=== PATIENT | female | born 1985 | race Caucasian/White ===

== ENCOUNTER → 2025-08-23 13:08 | Outpatient (BNVA) | payer MEDICAID, SELFPAY | PROVIDERS: Visit Provider Obstetrics & Gynecology | DX: N91.2 Amenorrhea, unspecified (principal); N92.6 Irregular menstruation, unspecified | CPT/HCPCS: 80053; 81025; 84702; 86850; 86900 ==

== ENCOUNTER 2025-09-06 19:50 | Observation (INO) | payer MEDICAID, SELFPAY ==
[2025-09-06] VITALS (9 sets, daily range): BP systolic 59–104; BP diastolic 44–70; PULSE 81–129; RESP 16; TEMP 36.8; O2SAT 96–100; BMI 23.1
--- NOTE | 2025-09-06 20:10 | ED_ITS ---
HPI - 2 General: Chief complaint: Vaginal Bleeding Stated complaint: Had a Miscarriage and is bleeding Time Seen by Provider: 09/06/25 20:01 History of Present Illness: 40-year-old female patient is G9, P2 SAB 2 L6 presenting with complaints of vaginal bleeding. She was seen earlier this month at 7 weeks gestation pole with no heart activity open you know thoroughly reviewed. They are at this putting a repeat ultrasound to look further evaluate viability. Last night she started bleeding quite heavily. She had been on progesterone through this her last dose was yesterday. She has been lightheaded dizzy and weak today. History 9 Term 6 0 Miscarriages/Ectop ic 2 Living Children 6 Date of Last Menstrual Period: 06/20/25 Associated symptoms: Deny abdominal pain or dysuria Related Data Home Medications ?Medication ?Instructions ?Recorded ?Confirmed Estrogen Oil topical BID 08/23/25 5 Allergies Allergy/AdvReac Type Severity Reaction Status Date / Time No Known Allergies Allergy Unverified 08/31/25 10:06 Review of Systems 2 Const: Denies: fever(s) or chills Card: Denies: chest pain Resp: Denies: dyspnea GI: Denies: abdominal pain : Reports: vaginal bleeding and pelvic pain; Denies: dysuria, urinary frequency or urinary urgency Musc: Denies: neck pain or back pain Skin/Breast: Denies: rash PFSH ED 2 PFSH: Medical History Abnormal in first trimester Hx of pre-eclampsia in prior , currently AMA (advanced maternal age) multigravida 35+ Family History Father Heart disease Hypertension Diabetes Mother Hypertension Hyperlipidemia Grandmother Uterine cancer Social History Smoking and tobacco/nicotine status: never used tobacco/nicotine Alcohol intake: never Substance/Drug Use: never Female Reproductive History: Date of last menstrual period: 06/20/25 Physical Exam 2 Const: COMMON NORMALS: no acute distress GENERAL APPEARANCE: cooperative and comfortable ORIENTATION/CONSCIOUSNESS: Yes awake, Yes oriented to person, Yes oriented to place and Yes oriented to time HENMT: COMMON NORMALS: normocephalic, atraumatic and hearing grossly normal bilaterally HEAD & SCALP: normocephalic and atraumatic Resp: COMMON NORMALS: normal respiratory effort, No retractions, No use of accessory muscles and clear to auscultation bilaterally AUSCULTATION: clear to auscultation bilaterally Cardio: COMMON NORMALS: regular rate, regular rhythm and No murmurs present (Cardio) RATE: regular rate RHYTHM: regular rhythm GI: COMMON NORMALS: Soft to palpation and No hepatosplenomegaly present A USCULTATION: Yes normoactive bowel sounds PALPATION: Yes Soft to palpation, No Tenderness to palpation present (GI), No Guarding due to palpation present (GI) and Yes No hepatosplenomegaly present : OTHER: Pelvic exam done with nurse in attendance. Patient placed in dorsolithotomy position speculum introduced large amount of clot in the vaginal vault this is evacuated using ring forceps. Proximal conception visualized at the cervical os this was removed with a ring forceps observe the cervix for a time after this no significant bleeding. Extremity: COMMON NORMALS: normal to inspection, capillary refill normal, no clubbing, cyanosis or edema, no calf tenderness and no pedal edema Neuro: SENSORIUM/ORIENTATION: Yes oriented to person, Yes oriented to place and Yes oriented to time Skin: COMMON NORMALS: no rashes or lesions noted GENERAL SKIN EXAM: no rashes or lesions noted Course 2 Vital Signs: Vital signs: Vital Signs Temperature 98.2 F 09/06/25 19:59 Pulse Rate 81 09/06/25 23:18 Respiratory Rate 16 09/06/25 19:59 Blood Pressure 102/64 09/06/25 23:18 Pulse Oximetry 100 09/06/25 23:18 Oxygen Delivery Me thod Room Air 09/06/25 23:18 MDM - OB/Uterine Contractions Medical Decision Making Medical decision making Social determinants: Patient has family support at the bedside I reviewed the patient's medical record. I reviewed the patient's current home meds Alternate historians: contributed some to history Differential diagnosis: Incomplete AB versus endomyometritis Lab Review: Labs reviewed. Hemoglobin did drop significantly on second lab draw from 9.8-7.9 Imaging: None Assessment of risk: Level of risk: Moderate Hospitalization considerations: Patient placed on observation due to drop in hemoglobin and orthostasis. Reexamination: Repeat exam patient remains weak. She is hypotensive when sitting up blood pressure dropped to 59 systolic when lying down her symptoms are resolved. She has had only minimal bleeding since pelvic exam was done with removal of products of conception from the os Assessment and plan: Had hoped to discharge patient home after fluids however she is significantly orthostatic as pretty significant drop in her hemoglobin discussed Dr. Roberts will place her on observation orders written and reviewed findings with the patient as well. Patient given 1 g TXA in the department. Medical Records I reviewed the patient's medical records. Lab Data I reviewed the patient's lab results. 09/06/25 22:38 09/06/25 20:06 Laboratory Results WBC 11.75 10^3/uL (3.29-11.43) H 09/06/25 20:06 RBC 3.38 10^6/uL (3.85-5.65) L 09/06/25 20:06 Hgb 7.90 g/dL (11.27-16.99) L 09/06/25 22: Hct 22.8 % (36-47) L 09/06/25 22: MCV 81.7 fl (85-98) L 09/06/25 20:06 MCH 29.0 pg (27-33) 09/06/25 20:06 MCHC 35.5 g/dL (30-55) 09/06/25 20:06 RDW 12.6 % (12.1-15.1) 09/06/25 20:06 Plt Count 274 10^3/cmm (157-399) 09/06/25 20:06 MPV 10.1 fL (7.4-10.4) 09/06/25 20:06 Neut % (Auto) 75.0 % 09/06/25 20:06 Lymph % (Auto) 16.6 % 09/06/25 20:06 Pepin % (Auto) 7.8 % 09/06/25 20:06 Eos % (Auto) 0.1 % 09/06/25 20:06 Baso % (Auto) 0.2 % 09/06/25 20:06 Neut # (Auto) 8.82 10^3/uL (1.8-7.7) H 09/06/25 20:06 Lymph # (Auto) 2.0 10^3/uL (0.8-4.8) 09/06/25 20:06 Pepin # (Auto) 0.9 10^3/uL (0.2-0.9) 09/06/25 20:06 Eos # (Auto) 0.0 10^3/uL (0.0-0.8) 09/06/25 20:06 Baso # (Auto) 0.0 10^3/uL (0.0-0.1) 09/06/25 20:06 Nucleated RBC % (auto) 0 % 09/06/25 20:06 Nucleated RBCs # 0.0 /100WBC 09/06/25 20:06 Sodium 131 mmol/L (136-145) L 09/06/25 20:06 Potassium 4.0 mmol/L (3.5-5.1) 09/06/25 20:06 Chloride 100 mmol/L (98-107) 09/06/25 20:06 Carbon Dioxide 20 mmol/L (22-29) L 09/06/25 20:06 Anion Gap 15.0 (5-19) 09/06/25 20:06 BUN 15 mg/dL (6-20) 09/06/25 20:06 Creatinine 0.8 mg/dL (0.5-0.9) 09/06/25 20:06 GFR Calculation 78.7 mL/min (90-130) L 09/06/25 20:06 Glucose 144 mg/dL (65-115) H 09/06/25 20:06 Calculated Osmolality 275 mOsm/kg (285-295) L 09/06/25 20:06 Calcium 8.7 mg/dL (8.5-10.5) 09/06/25 20:06 Total Bilirubin 2.2 mg/dL (0.15-1.2) H 09/06/25 20:06 AST 10 U/L (0-32) 09/06/25 20:06 ALT 10 U/L (0-33) 09/06/25 20:06 Alkaline Phosphatase 31 U/L (35-105) L 09/06/25 20:06 Total Protein 6.4 g/dL (6.6-8.7) L 09/06/25 20:06 Albumin 3.9 g/dL (3.5-5.2) 09/06/25 20:06 Globulin 2.5 g/dL (1.3-4.6) 09/06/25 20:06 Ser , Semi-Qnt 755.80 mIU/mL 09/06/25 20:06 No radiology studies performed this visit Discharge Plan Discharge Patient Disposition: Placed in Observation Clinical Impression: Incomplete , AMA (advanced maternal age) multigravida 35+, Hx of pre- eclampsia in prior , currently , Anemia Coding Level of Care Code ED Remote Sensing Engineer for Kinga Diaz
[2025-09-06 20:34] LABS: Hematocrit 27.6 % (36-47); Hemoglobin 9.80 g/dL (11.27-16.99); Mean Corpuscular HGB Conc 35.5 g/dL (30-55); Mean Corpuscular Hemoglobin 29.0 pg (27-33); Mean Corpuscular Volume 81.7 fl (85-98); Nucleated Red Blood Cells % 0 %; Platelet Count 274 10^3/cmm (157-399); Red Blood Count 3.38 10^6/uL (3.85-5.65); White Blood Count 11.75 10^3/uL (3.29-11.43)
[2025-09-06 20:45] LABS: Alanine Aminotransferase 10 U/L (0-33); Albumin Level 3.9 g/dL (3.5-5.2); Alkaline Phosphatase 31 U/L (35-105); Anion Gap 15.0 (5-19); Aspartate Amino Transferase 10 U/L (0-32); Blood Urea Nitrogen 15 mg/dL (6-20); Calcium 8.7 mg/dL (8.5-10.5); Carbon Dioxide 20 mmol/L (22-29); Chloride 100 mmol/L (98-107); Globulin 2.5 g/dL (1.3-4.6); Glucose 144 mg/dL (65-115); Osmolality Calculated 275 mOsm/kg (285-295); Potassium 4.0 mmol/L (3.5-5.1); Sodium 131 mmol/L (136-145); Total Protein 6.4 g/dL (6.6-8.7)
[2025-09-06 22:55] LABS: Hematocrit 22.8 % (36-47); Hemoglobin 7.90 g/dL (11.27-16.99)
[2025-09-06] MEDS: tranexamic acid 1,000 MG/100 ML PREMIX 600 MG IV (23:17)
[2025-09-07] VITALS (39 sets, daily range): BP systolic 72–124; BP diastolic 49–76; PULSE 65–109; RESP 14–18; TEMP 36.4–36.9; O2SAT 94–100; BMI 23.1
--- NOTE | 2025-09-07 02:50 | PC.NURSE ---
Physician update: Dr. Roberts called to check on patient; inquired about her bleeding and notified Dr. Roberts that patient's vaginal bleeding has been small-moderate since her arrival on OB unit about 2 hours ago, no clots. Confirmed with Dr. Roberts that patient has CBC and BMP ordered for 0400; Dr. Roberts states that she does not want to be called/texted with results, she will call at 0600 for results. This RN also confirmed with Dr. Roberts that clear liquid diet is acceptable for patient.
[2025-09-07 04:44] LABS: Hemoglobin 6.60 g/dL (11.27-16.99); Mean Corpuscular HGB Conc 33.7 g/dL (30-55); Mean Corpuscular Hemoglobin 28.3 pg (27-33); Mean Corpuscular Volume 84.1 fl (85-98); Nucleated Red Blood Cells % 0 %; Platelet Count 188 10^3/cmm (157-399); Red Blood Count 2.33 10^6/uL (3.85-5.65); White Blood Count 9.43 10^3/uL (3.29-11.43)
[2025-09-07 04:52] LABS: Hematocrit 19.6 % (36-47)
[2025-09-07 05:01] LABS: Anion Gap 11.2 (5-19); Blood Urea Nitrogen 10 mg/dL (6-20); Calcium 7.5 mg/dL (8.5-10.5); Carbon Dioxide 22 mmol/L (22-29); Chloride 106 mmol/L (98-107); Glucose 122 mg/dL (65-115); Osmolality Calculated 280 mOsm/kg (285-295); Potassium 4.2 mmol/L (3.5-5.1); Sodium 135 mmol/L (136-145)
--- NOTE | 2025-09-07 08:13 | USR_ITS ---
PROCEDURE INFORMATION: Exam: US , Transvaginal Exam date and time: 09/07/2025 8:50 AM Age: 40 years old Clinical indication: Lmp or gestational age (in weeks): 06/20/2025; Other: Miscarriage; Additional info: Possibly retained products of conception LABS AND CLINICAL REPORTS: Choriogonadotropin in serum (Serum HCG): 756 mIU/mL Last menstrual period start date: 06/20/2025 TECHNIQUE: Imaging protocol: Real-time transvaginal obstetrical ultrasound of the maternal pelvis with image documentation. Transvaginal imaging was used for better evaluation of the fetus, adnexa, and/or cervix. COMPARISON: US OB <= 14 weeks fetus [facility] 08/30/2025 9:26 AM FINDINGS: Gestation: No intrauterine gestation identified. MATERNAL: Uterus: No viable identified. No convincing ultrasound evidence of retained products of conception. Tiny amount of fluid in the endometrial and endocervical canal is likely blood. Endometrium measures 1.8 cm in thickness, but is not hypervascular.. Otherwise, unremarkable uterus and cervix. Right ovary/adnexa: Normal-appearing right ovary with normal blood flow. No solid right adnexal masses. Left ovary/adnexa: Normal-appearing left ovary with normal blood flow. No solid left adnexal masses. Intraperitoneal space: No free fluid. US/US OB transvaginal [id number] IMPRESSION: 1. No viable identified. 2. No convincing ultrasound evidence of retained products of conception. 3. Tiny amount of fluid in the endometrial and endocervical canal is likely blood. 4. No other significant abnormalities.
--- NOTE | 2025-09-07 08:41 | P.HP_ITS ---
Providers/Chief Complaint 2 Admitting Physician: Rosalva Roberts MD Primary Care Provider: Rosalva Roberts MD Chief Complaint: Possible Miscarriage and is bleeding HPI CERTIFIED FLIGHT INSTRUCTOR History of Present Illness Rosalva Ward is a 40 year old female multigravid who came through ER for hemorrhage associated with active SAB. Seen in office and declined any intervention and insisted on continuing topical progesterone. She started SAB at home and had tremendous bleeding with clots that progressed. POC wre removed in ER sitting at cervical os along with many clots. She had tachycardia and hypotension so admitted for stabilization and continued observation. This am feels better than last night. Present Details : 9 Para: 6 Date of Last Menstrual Period: 06/20/25 Calculated Date of Delivery: 03/27/26 Gestational Age Based on Last Menstrual Period: 11 Review of Systems 2 Narrative: Pertinent positives listed in HPI: Const: Denies: fever(s) or chills Card: Denies: chest pain, palpitations + syncope Resp: Denies: SOB, cough GI: Denies: abdominal pain, nausea or vomiting : Denies: flank pain, dysuria or urinary frequency Musc: Denies: back pain or extremity swelling Skin/Breast: Denies: rash, pruritus or breast pain Neuro: Denies: headache(s) or dizziness Psych: Denies: depression or mood swings Endo: Denies: polyuria, cold or heat intolerance Samy/Lymph: Denies: easy bruising or easy bleeding Medications/Allergies Home Medications ?Medication ?Instructions ?Recorded ?Confirmed ?Last Taken ?Type multivitamin 1 tab PO DAILY 09/07/2508/1409/06/25 History Allergies Allergy/AdvReac Type Severity Reaction Status Date / Time No Known Allergies Allergy Verified 09/07/25 01:43 PFSH CERTIFIED FLIGHT INSTRUCTOR 2 PFSH: Medical History (Updated 09/07/25 @ 08:50 by Rosalva Roberts MD) Hemorrhage affecting SAB (spontaneous ) Abnormal in first trimester Hx of pre-eclampsia in prior , currently AMA (advanced maternal age) multigravida 35+ Family History Father Heart disease Hypertension Diabetes Mother Hypertension Hyperlipidemia Grandmother Uterine cancer Social History Smoking and tobacco/nicotine status: never used tobacco/nicotine Alcohol intake: never Substance/Drug Use: never History History History 2 9 Term 6 0 Miscarriages/Ectopic 2 Living Children 6 Vitals/I&O/Wt Last Vital Signs Temp 98.5 F 09/07/25 07:53 Pulse 80 09/07/25 07:53 Resp 16 09/07/25 07:53 BP 74/49 09/07/25 04:25 Pulse Ox 99 09/07/25 07:53 O2 Del Method Room Air 09/07/25 04:25 09/06/25 09/07/25 09/07/25 22:59 06:59 14:59 Intake Total 1000 / 1000 0 / 0 Balance 1000 / 1000 0 / 0 Weight last 48 hrs Weight 135 lb Weight 135 lb Physical Exam 2 Narrative: Appearance: grossly normal Attitude: calm and engaged, appropriate eye contact Const: no acute distress, oriented x3 cooperative Chest: Symmetrical chest wall rise Resp: normal respiratory effort, clear to auscultation bilaterally Cardio: regular rate and regular rhythm GI: Soft to palpation, Non Tender, no Guarding, no masses : No Uterine tenderness, small dried blood on thighs Extremity: normal inspection, negative for no pedal edema Neuro: oriented x3 and moves all extremities, speech normal Psych: mental status grossly normal, and Normal thought process present Skin: no rashes or lesions noted Data 09/07/25 04:30 09/07/25 04:30 Results Labs OB ([facility]): 2 Obstetrics US 08/30/25 Blood Type A Positive 09/06/25 Antibody Screen Negative 09/06/25 Hct, (36-47) 19.6 % L* Today Hgb, (11.27-16.99) 6.60 g/dL L Today Rho(D) Type Rh positive 09/06/25 Plt Count, (157-399) 188 10^3/cmm Δ Today Ser , Semi-Qnt 755.80 mIU/mL 09/06/25 HCG, Qual, (Negative) Positive H 08/23/25 A&P Assessment and plan 1. SAB (spontaneous ): She is doing better and getting transfused this am, will check US for any retained POC. She told me I was right and she should have listened but at least she came in when she did. 2. Hemorrhage affecting : Transfusing, hgb 6.6. Goal improved VS and stay above 7. 3. Anemia: 4. Incomplete : 5. AMA (advanced maternal age) multigravida 35+: 6. : PDMP PDMP Reviewed: Not Reviewed Attestations 2 Medical Necessity Statement*: OB Coding Level of Care Code Acute Code for Chg Fwd Diagnoses SAB (spontaneous ) O03.9 Hemorrhage affecting O46.90 Anemia D64.9 Incomplete O03.4 AMA (advanced maternal age) multigravida 35+ O09.529 Z34.90
--- NOTE | 2025-09-07 12:03 | PC.NURSE ---
PT UP TO BATHROOM AND VOIDED AND THEN C/O GETTING DIZZY, WE GOT BACK TO BED QUICKLY, SHE STATED THAT HER EARS WERE RINGING. PATIENT RESTING IN BED, VITALS DONE PRIOR TO GETTING UP WELL AFTER LAYING DOWN. PT STATED THAT SHE WAS FEEELING BETTER SINCE SHE LAID DOWN AND THIS TEACHER BALLET AGAIN TOLD HER NOT TO GET UP WITHOUT ASSISTANCE. PT VOICES UNDERSTANDING. 1120 DR. CHEN WAS HERE SO TOLD HER ABOUT PATIENT BEING DIZZY WHEN SHE GOT UP THIS TIME AND TOLD HER HER VITALS AND ORDERS RECEIVED FOR TO ADVANCE DIET TO REGULAR WELL CBC AT 1400.
--- NOTE | 2025-09-07 12:41 | PC.NURSE ---
VITALS DONE PRIOR TO HER GETTING U AND THEN ONCE SHE LAID BACK DOWN.
--- NOTE | 2025-09-07 12:43 | PC.NURSE ---
BLOOD WAS INFUSED BY 0840 BUT THIS CUT OFF OPERATOR SCORER FORGOT TO CHART INFUSED.
--- NOTE | 2025-09-07 14:21 | PC.NURSE ---
PT UP TO BATHROOM, DID GOOD, DENIED DIZZINESS BUT STILL FEELS WEAK. STILL VERY PALE.
--- NOTE | 2025-09-07 14:22 | PC.NURSE ---
PT UP TO BATHROOM, SMALL AREA OF BLOOD ON CHUX, RACHNA PAD WAS ABOUT 3/4 COVERED.
[2025-09-07 14:25] LABS: Hemoglobin 6.90 g/dL (11.27-16.99); Mean Corpuscular HGB Conc 35.4 g/dL (30-55); Mean Corpuscular Hemoglobin 29.7 pg (27-33); Mean Corpuscular Volume 84.1 fl (85-98); Nucleated Red Blood Cells % 0 %; Platelet Count 155 10^3/cmm (157-399); Red Blood Count 2.32 10^6/uL (3.85-5.65); White Blood Count 8.56 10^3/uL (3.29-11.43)
[2025-09-07 14:36] LABS: Hematocrit 19.5 % (36-47)
--- NOTE | 2025-09-07 17:06 | PM.MISC ---
Miscellaneous Note Note: Discussed the second unit going now and she continues to keep bleeding though not heavy she doesn't have room to drop hgb anymore. Despite US findings could just have fragment tissue hanging around. She agreed and wanted conservative treatment up to this point. Asked options and I explained continued loss equals continued replacement. Consented for suction D&C. Patient counseled on options: expectant management with risk of prolonged infection and injury/complication to uterus, pharmicotherapy with risk of failed medical , cytotec fever and need for repeat dosing and suction D&C. Risk of D&C were reviewed including, but not limited to, pain, infection, bleeding, blood loss requiring transfusion, uterine perforation and need for additional or subsequent surgery for repair. She voices understanding and denies any questions or needs. Will proceed with [surgery at [address] valencia] .
--- NOTE | 2025-09-07 17:51 | PC.NURSE ---
163 DR. CHEN HERE AND INTO SEE PATIENT, DR CHEN ASKING ABOUT PATIENT BLEEDING AND I SHOWED HER ALL OF THE RACHNA PADS THAT I HAVE CHANGED TODAY AND SHE IS NOT COMFORTABLE WITH THE AMOUNT THAT ARE ON THEM. DR. CHEN TALKED AT LENGTH WITH PATIENT ABOUT HER BLEEDING AND ENCOURAGED AND TALKED WITH HER ABOUT A D&C AND ALSO ABOUT THAT EVEN AFTER BLOOD HER LEVELS WERE STILL LOW. PATIENT ASKED QUESTIONS AND THEY WERE ANSWERED AND PATIENT AGREED TO HAVE SURGERY AND DR. CHEN DISCUSSED RISKS WITH HER, CONSENT SIGNED AND SINCE PATIENT ATE AT [facility] 1300 SHE WANTS TO WAIT 6 HOURS FOR SAFETY. THIS DIRECTOR GLOBAL MARKET RESEARCH CALLED MARY BUTLER CRNA AND HE IS AWARE OF SITUATION AND ALSO CALLED [facility] AND SHE IS NOTIFYING OR STAFF BECAUSE SHE WANTS TO DO IT DOWN THERE WHERE THEY HAVE EVERYTHING THEY NEED. THIS DIRECTOR GLOBAL MARKET RESEARCH DID TELL DR. CHEN AFTER LEAVING ROOM THAT PATIENT DOES HAVE A STRONG ODOR FROM VAGINA POSSIBLE JUST OLD BLOOD BUT NOT SURE IF ITS BLOOD SMELL OR INFECTION SMELL. DR. CHEN ORDERED 2 MORE UNITS OF BLOOD TO BE AVAILABLE FOR OR IF NEEDED. SHE STATED THAT SHE WOULD PROBABLY GIVE HER A UNIT IN OR.
--- NOTE | 2025-09-07 18:30 | PC.NURSE ---
PT TO OR WITH OR CREW.
--- NOTE | 2025-09-07 18:46 | ANES.PREANE2 ---
Pre-Anesthetic Assessment Height/Weight: Height 1.63 m Weight 61.235 kg Temp Pulse Resp BP Pulse Ox O2 Del Method 97.5 F L 90 18 99/59 99 Room Air 09/07/25 18:20 09/07/25 18:20 09/07/25 18:20 09/07/25 18:20 09/07/25 18:20 09/07/25 18:20 Operation Date: 09/07/25 19:00 Proposed Procedures p Dilation And Curettage (D&C) Dilatation and Curettage with Suction(Not Applicable) - Rosalva Roberts MD Familial anesthetic complications: Never had anesthesia, no known family complications to anesthesia Was Beta Sultana taken within 24 hours: N/A Was Clonidine taken within 24 hours: N/A Last intake: 1230 Social No alcohol and No tobacco Exam alert, oriented x 3, clear to auscultation bilaterally and regular rate & rhythm Airway Submandibular: within normal limits Cervical ROM: within normal limits Mallampati: Class II Dentition: full History/ROS No significant history except as noted and No significant complaints Pulmonary None reported CV/HEM Anemia Pre-eclampsia in November, resolved since None reported Hepatic Elevated bilirubin per patient GI None reported Metabolic None reported Musc/skel None reported Neuropsych None reported Anesthetic Plan ASA status: 2E Anesthesia: Anesthesia Evaluation and General Risk of > 500 ml blood loss (7ml/kg in children): Yes, adequate IV access and fluids planned Medications/Allergies Home Medications ?Medication ?Instructions ?Recorded ?Confirmed ?Last Taken ?Type multivitamin 1 tab PO DAILY 09/07/25 09/07/25 09/06/25 History Allergies Allergy/AdvReac Type Severity Reaction Status Date / Time No Known Allergies Allergy Verified 09/07/25 01:43 Current Medications Generic Name Dose Route Start Last Admin Trade Name Freq PRN Reason Stop Dose Admin Sodium Chloride 1,000 mls @ 100 mls/hr 09/07/25 00:26 09/07/25 01:32 Sodium Chloride 0.9% IV 100 mls/hr On Hold: 09/07/25 18:18 .Q10H MERY Administration Comment: Order held by Process Transfer [facility] Anesthesia Medical History (Updated 09/07/25 @ 08:50 by Rosalva Roberts MD) Hemorrhage affecting SAB (spontaneous ) Abnormal in first trimester Hx of pre-eclampsia in prior , currently AMA (advanced maternal age) multigravida 35+ Family History Father Heart disease Hypertension Diabetes Mother Hypertension Hyperlipidemia Grandmother Uterine cancer Social History Smoking and tobacco/nicotine status: never used tobacco/nicotine Alcohol intake: never Substance/Drug Use: never Female Reproductive History Date of last menstrual period: 06/20/25 : 9 Data Anesthesia 09/07/25 14:00 09/07/25 04:30 Short CBC 09/06/25 09/06/25 09/07/25 Range/Units 20:06 22:38 04:30 WBC 11.75 H 9.43 (3.29-11.43) 10^3/uL Hgb 9.80 L 7.90 L 6.60 L (11.27-16.99) g/dL Hct 27.6 L 22.8 L 19.6 L* (36-47) % MCV 81.7 L 84.1 L (85-98) fl Plt Count 274 188 D (157-399) 10^3/cmm Neut % (Auto) 75.0 67.0 % Neut # (Auto) 8.82 H 6.31 (1.8-7.7) 10^3/uL 09/07/25 Range/Units 14:00 WBC 8.56 (3.29-11.43) 10^3/uL Hgb 6.90 L (11.27-16.99) g/dL Hct 19.5 L* (36-47) % MCV 84.1 L (85-98) fl Plt Count 155 L (157-399) 10^3/cmm Neut % (Auto) 70.9 % Neut # (Auto) 6.08 (1.8-7.7) 10^3/uL BMP 09/06/25 09/07/25 20:06 04:30 Sodium 131 L 135 L Potassium 4.0 4.2 Chloride 100 106 Carbon Dioxide 20 L 22 BUN 15 10 Creatinine 0.8 0.5 Glucose 144 H 122 H Calcium 8.7 7.5 L Liver Function 09/06/25 Range/Units 20:06 Total Bilirubin 2.2 H (0.15-1.2) mg/dL AST 10 (0-32) U/L ALT 10 (0-33) U/L Alkaline Phosphatase 31 L (35-105) U/L Albumin 3.9 (3.5-5.2) g/dL Blood Bank 09/06/25 22:38 Blood Type A Positive Rho(D) Type Rh positive Antibody Screen Negative
--- NOTE | 2025-09-07 18:54 | PM.OP ---
Operative Report Date of procedure: September 07, 2025 Pre-op diagnosis: incomplete with hemorrhage Post-op diagnosis: same Procedure done: suction D&C Specimens removed/disposition: POC Pathology: POC Surgeon: Rosalva Roberts MD Estimated blood loss: 175 cc IV fluids: 1000 cc Urine output: 100 cc Findings: moderate POC, dilated cervix to 2 cm Procedure: Patient taken to OR, consent verified and time out done. Patient prepped and draped in dorsal lithotomy position after adequate anesthesia obtained.. Cervix grasped after retractors placed. Cervix was dilated and small POC at os opening. A size 9 mm curette used until gritty texture noted. Sharp curette passed to verify the same. POC removed. several passes until satisfied. Uterus boggy, IM methergine, TXA and pitocin given with massage and vast improvement and decreased in size until Bleeding scant. One unit of blood given also. All instruments removed and counts wree correct. Patient extubated and taken to recovery.
[2025-09-07] MEDS: tranexamic acid 1,000 mg/10mL SDV 1000 MG IV (19:21)
[2025-09-08] VITALS (8 sets, daily range): BP systolic 96–117; BP diastolic 56–79; PULSE 64–88; RESP 16; TEMP 36.6–36.7; O2SAT 99–100
[2025-09-08 04:59] LABS: Hematocrit 26.2 % (36-47); Hemoglobin 9.40 g/dL (11.27-16.99); Mean Corpuscular HGB Conc 35.9 g/dL (30-55); Mean Corpuscular Hemoglobin 29.8 pg (27-33); Mean Corpuscular Volume 83.2 fl (85-98); Platelet Count 143 10^3/cmm (157-399); Red Blood Count 3.15 10^6/uL (3.85-5.65); White Blood Count 7.57 10^3/uL (3.29-11.43)
--- NOTE | 2025-09-08 11:54 | P.DS_ITS ---
Discharge Providers INSERTING PRESS OPERATOR Date of Admission: 09/06/25 23:01 Date of Discharge: 09/08/25 Attending Provider at Admission: Rosalva Roberts MD Attending Provider at Discharge: Rosalva Roberts MD Primary Care Provider: Rosalva Roberts MD Diagnoses at Discharge Discharge Diagnosis 1. SAB (spontaneous ): 2. Hemorrhage affecting : 3. Anemia: 4. Incomplete : 5. AMA (advanced maternal age) multigravida 35+: 6. : Reason for Visit Reason for Visit: Possible Miscarriage and is bleeding Hospital Course Hospital Course Admitted from ER after retrieval of POC at os. VS with hypotension and tachycardia so here for observation. The bleeding was still present and lingering of light to more period. She then passed mild tissue on her own. US done and showed no more POC, only blood. Still symptomatic and given 2 units PRBCs. Because bleeding remained heavier than clinically appropriate she was taken for D&C. Moderate amount of POC removed, 1 unit PRBCs, methergine and pitocin given. Recovered overnight and bleeding scant, hgb stabilized from 6.6 to 9.4. Discharged home. improved. Physical Exam Narrative: Appearance: grossly normal Attitude: calm and engaged, appropriate eye contact Const: no acute distress, oriented x3 cooperative Chest: Symmetrical chest wall rise Resp: normal respiratory effort, clear to auscultation bilaterally Cardio: regular rate and regular rhythm GI: Soft to palpation, Non Tender, no Guarding, no masses Extremity: normal inspection, negative for no pedal edema Neuro: oriented x3 and moves all extremities, speech normal Psych: mental status grossly normal, and Normal thought process present Skin: no rashes or lesions noted History History History 9 Term 6 0 Miscarriages/Ectopic 2 Living Children 6 Discharge Data Studies Completed and Pending Completed Studies During Hospitalization Category Date Time Status US OB transvaginal [id number] Urgent Ultrasound 09/07/25 08:13 Completed Pending at discharge Category Date Time Status PRBC [Leukocyte Reduced RBC] Stat Lab 09/07/25 06:34 Results Type and Screen Stat Lab 09/06/25 22:38 Results Pathology: Surgical [PTH] Routine Pth 09/07/25 19:25 Ordered Pathology: Surgical [PTH] Stat Pth 09/06/25 22:15 Stop Req Pathology: Surgical [PTH] Stat Pth 09/07/25 09:00 Received Radiology Impressions Transvaginal US 09/07/25 08:13 IMPRESSION: 1. No viable identified. 2. No convincing ultrasound evidence of retained products of conception. 3. Tiny amount of fluid in the endometrial and endocervical canal is likely blood. 4. No other significant abnormalities. Laboratory Results WBC 7.57 10^3/uL (3.29-11.43) 09/08/25 04:30 RBC 3.15 10^6/uL (3.85-5.65) L 09/08/25 04:30 Hgb 9.40 g/dL (11.27-16.99) L D 09/08/25 04:30 Hct 26.2 % (36-47) L D 09/08/25 04:30 MCV 83.2 fl (85-98) L 09/08/25 04:30 MCH 29.8 pg (27-33) 09/08/25 04:30 MCHC 35.9 g/dL (30-55) 09/08/25 04:30 RDW 13.3 % (12.1-15.1) 09/08/25 04:30 Plt Count 143 10^3/cmm (157-399) L 09/08/25 04:30 MPV 10.0 fL (7.4-10.4) 09/08/25 04:30 Neut % (Auto) 70.9 % 09/07/25 14:00 Lymph % (Auto) 18.7 % 09/07/25 14:00 [place] % (Auto) 8.9 % 09/07/25 14:00 Eos % (Auto) 0.6 % 09/07/25 14:00 Baso % (Auto) 0.5 % 09/07/25 14:00 Neut # (Auto) 6.08 10^3/uL (1.8-7.7) 09/07/25 14:00 Lymph # (Auto) 1.6 10^3/uL (0.8-4.8) 09/07/25 14:00 [place] # (Auto) 0.8 10^3/uL (0.2-0.9) 09/07/25 14:00 Eos # (Auto) 0.1 10^3/uL (0.0-0.8) 09/07/25 14:00 Baso # (Auto) 0.0 10^3/uL (0.0-0.1) 09/07/25 14:00 Nucleated RBC % (auto) 0 % 09/07/25 14:00 Nucleated RBCs # 0.0 /100WBC 09/07/25 14:00 Sodium 135 mmol/L (136-145) L 09/07/25 04:30 Potassium 4.2 mmol/L (3.5-5.1) 09/07/25 04:30 Chloride 106 mmol/L (98-107) 09/07/25 04:30 Carbon Dioxide 22 mmol/L (22-29) 09/07/25 04:30 Anion Gap 11.2 (5-19) 09/07/25 04:30 BUN 10 mg/dL (6-20) 09/07/25 04:30 Creatinine 0.5 mg/dL (0.5-0.9) 09/07/25 04:30 GFR Calculation 135.3 mL/min (90-130) H 09/07/25 04:30 Glucose 122 mg/dL (65-115) H 09/07/25 04:30 Calculated Osmolality 280 mOsm/kg (285-295) L 09/07/25 04:30 Calcium 7.5 mg/dL (8.5-10.5) L 09/07/25 04:30 Total Bilirubin 2.2 mg/dL (0.15-1.2) H 09/06/25 20:06 AST 10 U/L (0-32) 09/06/25 20:06 ALT 10 U/L (0-33) 09/06/25 20:06 Alkaline Phosphatase 31 U/L (35-105) L 09/06/25 20:06 Total Protein 6.4 g/dL (6.6-8.7) L 09/06/25 20:06 Albumin 3.9 g/dL (3.5-5.2) 09/06/25 20:06 Globulin 2.5 g/dL (1.3-4.6) 09/06/25 20:06 Ser , Semi-Qnt 755.80 mIU/mL 09/06/25 20:06 Blood Type A Positive 09/06/25 22:38 Rho(D) Type Rh positive 09/06/25 22:38 Antibody Screen Negative 09/06/25 22:38 Crossmatch See Detail 09/06/25 22:38 Vitals Last Vital Signs Temp 98.0 F 09/08/25 10:12 Pulse 88 09/08/25 10:12 Resp 16 09/08/25 10:12 BP 117/79 09/08/25 10:12 Pulse Ox 99 09/08/25 10:12 O2 Del Method Room Air 09/08/25 10:12 Results Labs OB ([facility]): Obstetrics 08/30/25 Blood Type A Positive 09/06/25 Antibody Screen Negative 09/06/25 Hct, (36-47) 26.2 % L Δ Today Hgb, (11.27-16.99) 9.40 g/dL L Δ Today Rho(D) Type Rh positive 09/06/25 Plt Count, (157-399) 143 10^3/cmm L Today Ser , Semi-Qnt 755.80 mIU/mL 09/06/25 HCG, Qual, (Negative) Positive H 08/23/25 Discharge Plan Discharge Patient Disposition: Home Condition: Stable Prescriptions: New acetaminophen 325 mg Tablet 650 mg PO Q6H PRN (Reason: Mild Pain or Temp >100.4) Qty: 0 0RF ibuprofen 800 mg Tablet 800 mg PO Q8H Qty: 0 0RF Continued multivitamin Tablet 1 tab PO DAILY Discharge Order = DC NOW: Discharge Order (Routine); Ordered 09/08/25 Ordered By: Rosalva Roberts Referrals: Rosalva Roberts MD [Primary Care Provider, INSERTING PRESS OPERATOR] - 2 weeks Referral Note: Please call [facility] first thing tomorrow morning to schedule at 2 week follow up appointment with Dr. Roberts. Discharge Diet: Regular Discharge Activity: Increase activity as tolerated Patient Instructions: Anemia, Miscarriage (DC), Dilation and Curettage (DC), Post Anesthesia Care, Patient Portal & Lizy Instructions Activity Restrictions/Additional Instructions: Pelvic rest x 6 weeks Discharge Attestations INSERTING PRESS OPERATOR Time Spent in Discharge Care*: less than 30 min Coding Level of Care Code Acute Code for Chg Fwd Diagnoses SAB (spontaneous ) O03.9 Hemorrhage affecting O46.90 Anemia D64.9 Incomplete O03.4 AMA (advanced maternal age) multigravida 35+ O09.529 Z34.90
== END 2025-09-08 12:29 | disposition home or self-care (01) ==
LOC: ER 23:35 → OBGYN 09-07 00:07
PROVIDERS: Admitting Provider Obstetrics & Gynecology; Emergency Provider Family Medicine; PCP Obstetrics & Gynecology; Visit Provider Obstetrics & Gynecology
PROC: (CPT 58120; principal; 2025-09-07 19:00)
DX: O03.1 Delayed or excessive hemorrhage following incomplete spontaneous abortion (principal); O09.529 Supervision of elderly multigravida, unspecified trimester; Z3A.00 Weeks of gestation of pregnancy not specified; D64.9 Anemia, unspecified; I95.9 Hypotension, unspecified; R00.0 Tachycardia, unspecified
CPT/HCPCS: 59812; 36415; 36430; 76817; 80048; 80053; 84702; 85014; 85018; 85025; 85027; 86850; 86900; 86920; 88305; 96365; 99285; A4216; G0378; J0131; J0330; J1100; J1885; J2250; J2405; J2704; J3010; J7030; J7121; J9999; P9016; P9045